=== PATIENT | male | born 1965 | race African-American/Black ===

== ENCOUNTER 2017-01-25 09:13 | Outpatient (CLI) | payer BC, OTHER ==
[2017-01-25 13:10] LABS: Cardiac Risk 5.1 (Less than 4.5)
== END 2017-01-25 09:14 | disposition home or self-care (01) ==
LOC: NAVSJIPCSP 09:13
PROVIDERS: ATTEND Internal Medicine
DX: E78.5 Hyperlipidemia, unspecified (principal)
CPT/HCPCS: 36415; 80061

== ENCOUNTER 2017-06-03 09:17 | Outpatient (CLI) | payer BC ==
[2017-06-03 12:57] LABS: Cardiac Risk 5.2 (Less than 4.5)
== END 2017-06-03 09:18 | disposition home or self-care (01) ==
LOC: NAVSJIPCSP 09:17
PROVIDERS: ATTEND Internal Medicine
DX: E78.5 Hyperlipidemia, unspecified (principal)
CPT/HCPCS: 36415; 80061

== ENCOUNTER 2019-11-09 11:38 | Outpatient (CLI) | payer BC ==
--- NOTE | 2019-11-09 13:51 | RAD ---
PA AND LATERAL CHEST: Date: 11/09/2019 HISTORY: Cough. FINDINGS: Heart size and mediastinum are within normal limits. The lungs are clear of infiltrates. No significa nt bony findings. IMPRESSION: No active intrathoracic disease. POS: [facility]
== END 2019-11-09 11:39 | disposition home or self-care (01) ==
LOC: NAV RAD 11:38
PROVIDERS: ATTEND Nurse Practitioner Adult Health
DX: R05 Cough (principal)
CPT/HCPCS: 71046

== ENCOUNTER 2022-11-05 08:19 | Outpatient (CLI) | payer BC | END 2022-11-05 08:20 | disposition home or self-care (01) | LOC: NAV RAD 08:19 | PROVIDERS: ATTEND Family Medicine | DX: S49.91XA Unspecified injury of right shoulder and upper arm, initial encounter (principal) ==